=== PATIENT | male | born 1990 | race Caucasian/White ===

== ENCOUNTER → 2017-05-10 | Outpatient (CLI) | payer BC ==
--- NOTE | 2017-05-11 13:19 | RAD ---
Frontal and lateral views of the chest and two supine views of the abdomen obtained. INDICATION: GERD with esophagitis. COMPARISON: None. FINDINGS: No focal airspace consolidation, pleural effusion or pneumothorax. Cardiomediastinal silhouette appears within normal limits and there is no pulmonary vascular congestion. There is a moderate stool burden throughout the colon. No dilated air-filled loops of small bowel identified. No abnormal calcifications project over the abdomen. Visualized osseous structures appear intact, grossly unremarkable, given the nondedicated imaging. IMPRESSION: 1. No radiographic evidence for acute cardiopulmonary disease process. 2. Nonobstructive bowel gas pattern. 3. Radiography is not sensitive for findings of esophagitis. Endoscopy could be considered for further evaluation, as indicated. Electronically signed by: Darin Vale MD 05/11/2017 1:18 PM [facility] Workstation: [id number]
== END ==
LOC: LAB.O 10:20
PROVIDERS: ATTEND Nurse Practitioner Family
DX: K21.0 Gastro-esophageal reflux disease with esophagitis (principal); R03.0 Elevated blood-pressure reading, without diagnosis of hypertension